=== PATIENT | male | born 1950 | race Caucasian/White ===

== ENCOUNTER 2017-03-07 11:01 | Emergency (ER) | payer OTHER ==
[~2017-03-07] VITALS: Ht 185.4 cm; Wt 91.0 kg
[2017-03-07 11:02] VITALS: BP 138/79; PULSE 88; RESP 16; TEMP 97.9; O2SAT 98
[2017-03-07] MEDS ORDERED: LISI-519 PO (11:21)
[2017-03-07] MEDS ORDERED: b/p med (11:21)
[2017-03-07] MEDS ORDERED: LIDOCAINE 1%/EPINEPHrine 1:100,000 SOLN 20 ML VIAL INFIL ONE (11:45)
[2017-03-07] MEDS ORDERED: LIDOCAINE 1%/EPINEPHrine 1:100,000 SOLN 30 ML VIAL INFIL ONE (12:00)
[2017-03-07] MEDS ORDERED: CLIN1CAP5 PO (12:07)
--- NOTE | 2017-03-07 12:08 | PD ---
HPI Chief Complaint: Skin Problem Time Seen by Provider: 12:07 Travel History International Travel<30 days: No Contact w/Intl Traveler<30days: No Traveled to known affect area: No History of Present Illness HPI 66-year-old male presents to the emergency room for evaluation of painful, red cyst on his back. Patient states he has had a sebaceous cyst there for 10 years but 3 days ago it became red and painful and began to drain. He has not been applying anything to it. Denies fever, chills, nausea, and vomiting. PFSH Past Medical History Cardiovascular Problems: Yes (HTN) Hypertension: Yes Influenza Vaccination: No Social History Alcohol Use: Yes (occ) Tobacco Use: No Substance Use: No Allergies-Medications (Allergen,Severity, Reaction): Coded Allergies: Sulfa (Verified Allergy, Unknown, UNKNOWN, 03/07/17) Reported Meds & Prescriptions Reported Meds & Active Scripts Active Clindamycin (Clindamycin HCl) 150 Mg Cap 300 Mg PO Q6H 10 Days Reported [b/p med] Lisinopril 5 Mg Tab 5 Mg PO DAILY Review of Systems Except as stated in HPI: all other systems reviewed are Neg Physical Exam Narrative GENERAL: Well-nourished, well-developed male in no acute distress. Afebrile. Ambulatory. SKIN: Focused skin assessment warm/dry.SKIN: There is an indurated area in the left scapular region which measures about 3 cm in diameter. It is fluctuant with pointing and drainage. There is a zone of inflammation around it but no lymphangitis. HEAD: Normocephalic. EYES: No scleral icterus. No injection or drainage. NECK: Supple, trachea midline. No JVD or lymphadenopathy. CARDIOVASCULAR: Regular rate and rhythm without murmurs, gallops, or rubs. RESPIRATORY: Breath sounds equal bilaterally. No accessory muscle use. PSYCHIATRIC: No delusional thought processes. No hallucinations. Data Data Last Documented VS Vital Signs Date Time Temp Pulse Resp B/P Pulse Ox O2 Delivery O2 Flow Rate FiO2 03/07/17 11:02 97.9 88 16 138/79 98 Orders Wound Culture And Gram Stain (03/07/17 11:40) Lidocai-Epi 1%-1:100,000 Inj (Xylocaine- (03/07/17 11:45) Lidocai-Epi 1%-1:100,000 Inj (Xylocaine- (03/07/17 12:00) MDM Medical Decision Making Medical Screen Exam Complete: Yes Emergency Medical Condition: Yes Medical Record Reviewed: Yes Differential Diagnosis MRSA, sebaceous cyst, abscess Narrative Course 66-year-old male presents to the emergency room for evaluation of an abscess to his left scapular region for the past 3 days. Patient has had sebaceous cyst present for 10 years but it has not bothered him until 3 days ago. Symptoms include redness, pain, and drainage. He is afebrile and well-appearing in the emergency room. Vital signs stable. Resting comfortably in bed. Physical exam reveals infected sebaceous cyst/abscess with spontaneous drainage. Abscess was drained, see procedure note for details. Patient discharged with clindamycin and told to follow-up with her primary care physician or return for worsening symptoms. He understands and agrees to plan. Procedures Procedure Narrative INCISION AND DRAINAGE OF ABSCESS: The area was prepped and was sterilely draped. A subcutaneous wheal of 1% lidocaine with epinephrine with a total number 3 mL was used to anesthetize the area properly. A number 11 scalpel was used to make a 1 cm incision across the area of the abscess. The abscess was drained, complex loculations were broken down, and irrigated with normal saline. Cultures were obtained. Quarter inch iodoform packing was placed in the wound. Sterile dressing applied. Patient advised to have packing removed in two days. Diagnosis Primary Impression: Infected sebaceous cyst of skin Referrals: Primary Care Physician Patient Instructions: Abscess (ED), General Instructions Additional Instructions: Rest and drink plenty of fluids. Take clindamycin as directed, until gone. Return to the emergency room in 2 days to have packing removed. If it falls out before, this is okay. Follow up with a primary care physician. Return to emergency room for worsening symptoms, as discussed. Med/Other Pt SpecificInfo: Prescription(s) given Scripts Clindamycin 150 Mg [id number] Mg PO Q6H 10 Days Ref 0 Prov:Tee Dietz MD 03/07/17 Disposition: 01 DISCHARGE HOME Condition: Stable Teresa Solano Mar 07, 2017 12:08
== END 2017-03-07 12:22 | disposition home or self-care (01) ==
LOC: PHEFT 11:01
DX: L72.3 Sebaceous cyst (principal); I10 Essential (primary) hypertension
CPT/HCPCS: 10061; 87070; 87205